=== PATIENT | female | born 1945 | race Caucasian/White ===

== ENCOUNTER 2018-08-19 17:27 | Emergency (ER) | payer MEDICARE, SELFPAY ==
[2018-08-19 17:29] VITALS: BP 178/63; PULSE 73; RESP 16; TEMP 36.8; O2SAT 97
--- NOTE | 2018-08-19 17:40 | W.ED.GENAD ---
Discharge Plan Disposition Patient Disposition: HOME Condition: Fair Discharge Details Chief Complaint: Orthopedic Clinical Impression: Knee strain Primary Care Provider: Mary Kaur ED Provider: Altagracia Clay Discharge Instructions Instructions: Swollen Knee Joint (ED) Additional Instructions: Encourage rest, ice, elevation. Tylenol and/or Motrin as needed for discomfort. Continue with brace until being reevaluated. Please avoid activities that cause increased pain/strain to knee. Keep upcoming appointment with primary care for reevaluation. I am concerned that you have a meniscus injury, you may discuss this further with them. at your visit next week. If you develop fevers/chills, increased pain or other new/worsening symptoms please seek care urgently once again. Referrals: Mary Kaur MD [Primary Care Provider] - Medical Decision Making Patient is a 73-year-old female, accompanied by friend, with chief complaint of right knee pain. She reports a prior to arrival she was cleaning out her pool. Was bent down kneeling on the contralateral side when she went to go pushed up to bring herself to an upright position again, placing the entirety of her weight on the right knee, she felt a sudden pop. Since that time, patient has had pain on the lateral aspect of the knee. No previous surgeries or injuries to this knee. On exam, she is ambulating with an antalgic gait. She has pain along the lateral joint line seems to be quite focal. No effusion. Limited flexion. Full extension. Ligamentously intact. Am concerned for possible meniscal injury as the pain is greatly exacerbated with flexion, again localized to the lateral aspect of the knee. Given the mechanism of injury, do not suspect a fracture. Encourage rest, ice, elevation. Tylenol and ibuprofen as needed for discomfort. We did discuss the expected course if this is a meniscal injury. Patient was placed in a hinged knee brace. Patient would like to follow-up with her primary care, has an appointment with them next week. We discussed new/worsening symptoms that should prompt urgent evaluation once again. All the questions and concerns were addressed and she is in agreement this plan. HPI General Mode of arrival: ambulatory. Date/Time Provider Initiated Documentation: 08/19/18 17:29. Limitations to Documentation: no limitations. Information obtained by: patient, family (accompanied by friend) and RN notes reviewed. History of Present Illness 73 year old F presents to the emergency department with the chief complaint of right knee pain, described as moderate, with intensity rated at 8. Quality is described as aching, and is localized to the right and lower extremity. Patient reports no radiation. Patient started experiencing this minute(s) and it has been constant. Immobilization improves symptom(s), Movement worsens symptoms . Patient notes no other symptoms.. Patient did receive the following treatments prior to arrival, none Related Data Allergies Allergy/AdvReac Type Severity Reaction Status Date / Time No Known Allergies Allergy Unverified 08/19/18 17:38 General Stated Complaint: Orthopedic MEAGHAN: 4 Review of Systems Constitutional Reports as per HPI, Denies chills, Denies fever(s), Denies headache(s) and Denies weakness ENT Denies headache(s) Cardiovascular Reports as per HPI Respiratory Reports as per HPI and Denies cough Musculoskeletal Reports as per HPI and Denies tingling Integumentary/Breasts Reports as per HPI, Denies rash and Denies wounds Neurologic Reports as per HPI, Denies headache(s), Denies tingling, Denies paresthesias and Denies weakness [facility] Medical History Depression Diabetes Obesity (BMI 30-39.9) Family History Other Personal history of malignant neoplasm Social History Smoking/Tobacco Use Status: Never Alcohol Intake: never Drug use: Never Substance use type: does not use Do you feel safe at home: Yes Do you feel safe in your relationship?: Yes Exam Const General: cooperative, healthy appearing, comfortable, no acute distress, well developed and well groomed Nutritional Appearance: average body habitus and well nourished Orientation: alert and awake Resp Effort & Inspection: normal respiratory effort, able to speak in complete sentences and no respiratory distress Cardio Rate: regular rate Rhythm: regular rhythm Skin General skin exam: no rashes or lesions noted Lesions: no lesions Rashes: no rashes Trauma: no lacerations or abrasions Neuro General: alert and awake Cognition: normal cognition Speech: speech normal Gait: normal gait Motor: muscle tone normal throughout Sensory Exam: no sensory deficits noted Extrem Right lower extremity: normal capillary refill, no joint enlargement, hip/thigh Details: normal to inspection, knee Details: tenderness Location: of the lateral joint line, knee ligament exam normal Details: anterior drawer test normal, posterior drawer test normal, valgus stress test normal and varus stress test normal; no pain with axial loading and Bernardo's Test (unable to complete secondary to pain); no swelling, ROM abnormal, no lacerations, no ecchymosis, no crepitus and no deformity, lower leg Details: normal to inspection and no edema; no tenderness and no palpable cords, ankle Details: normal to inspection and foot Details: normal capillary refill; ROM limited (full extension of knee, limited flexion to 90) and no edema Psych Appearance: grossly normal and well kempt Mental Status: mental status grossly normal Speech and Movement: speech and movement normal Course Vital Signs Temperature 36.8 C 08/19/18 17:29 Pulse 73 08/19/18 17:29 Respiratory Rate 16 08/19/18 17:29 Blood Pressure 178/63 H 08/19/18 17:29 Pulse Oximetry 97 08/19/18 17:29 Temperature 36.8 C 08/19/18 17:29 Temperature Source Skin 08/19/18 17:29 Pulse 73 08/19/18 17:29 Respiratory Rate 16 08/19/18 17:29 Respiratory Effort 08/19/18 17:38 Blood Pressure 178/63 H 08/19/18 17:29 Blood Pressure Position Sitting 08/19/18 17:29 Pulse Oximetry 97 08/19/18 17:29 Oxygen Delivery Method Room Air 08/19/18 17:29 Oxygen Flow Rate 0 08/19/18 17:29 Pain Level 8 08/19/18 17:29
[2018-08-19 17:59] VITALS: BP 160/71
--- NOTE | 2018-08-19 18:08 | ED.GENADUL_ITS ---
Discharge Plan Disposition Patient Disposition: HOME Condition: Fair Discharge Details Chief Complaint: Orthopedic Clinical Impression: Knee strain Primary Care Provider: Mary Kaur ED Provider: Altagracia Clay Discharge Instructions Instructions: Swollen Knee Joint (ED) Additional Instructions: Encourage rest, ice, elevation. Tylenol and/or Motrin as needed for discomfort. Continue with brace until being reevaluated. Please avoid activities that cause increased pain/strain to knee. Keep upcoming appointment with primary care for reevaluation. I am concerned that you have a meniscus injury, you may discuss this further with them. at your visit next week. If you develop fevers/chills, increased pain or other new/worsening symptoms please seek care urgently once again. Referrals: Mary Kaur MD [Primary Care Provider] - Medical Decision Making Patient is a 73-year-old female, accompanied by friend, with chief complaint of right knee pain. She reports a prior to arrival she was cleaning out her pool. Was bent down kneeling on the contralateral side when she went to go pushed up to bring herself to an upright position again, placing the entirety of her weight on the right knee, she felt a sudden pop. Since that time, patient has had pain on the lateral aspect of the knee. No previous surgeries or injuries to this knee. On exam, she is ambulating with an antalgic gait. She has pain along the lateral joint line seems to be quite focal. No effusion. Limited flexion. Full extension. Ligamentously intact. Am concerned for possible meniscal injury as the pain is greatly exacerbated with flexion, again localized to the lateral aspect of the knee. Given the mechanism of injury, do not suspect a fracture. Encourage rest, ice, elevation. Tylenol and ibuprofen as n eeded for discomfort. We did discuss the expected course if this is a meniscal injury. Patient was placed in a hinged knee brace. Patient would like to follow-up with her primary care, has an appointment with them next week. We discussed new/worsening symptoms that should prompt urgent evaluation once again. All the questions and concerns were addressed and she is in agreement this plan. HPI General Mode of arrival: ambulatory . Date/Time Provider Initiated Documentation: 08/19/18 17:29 . Limitations to Documentation: no limitations . Information obtained by: patient, family (accompanied by friend) and RN notes reviewed . History of Present Illness 73 year old F presents to the emergency department with the chief complaint of right knee pain, described as moderate, with intensity rated at 8. Quality is described as aching, and is localized to the right and lower extremity. Patient reports no radiation. Patient started experiencing this minute(s) and it has been constant. Immobilization improves symptom(s), Movement worsens symptoms . Patient notes no other symptoms.. Patient did receive the following treatments prior to arrival, none Related Data Allergies Allergy/AdvReac Type Severity Reaction Status Date / Time No Known Allergies Allergy Unverified 08/19/18 17:38 General Stated Complaint: Orthopedic MEAGHAN: 4 Review of Systems Constitutional Reports as per HPI, Denies chills, Denies fever(s), Denies headache(s) and Denies weakness ENT Denies headache(s) Cardiovascular Reports as per HPI Respiratory Reports as per HPI and Denies cough Musculoskeletal Reports as per HPI and Denies tingling Integumentary/Breasts Reports as per HPI, Denies rash and Denies wounds Neurologic Reports as per HPI, Denies headache(s), Denies tingling, Denies paresthesias and Denies weakness [facility] Medical History Depression Diabetes Obesity (BMI 30-39.9) Family History Other Personal history of malignant neoplasm Social History Smoking/Tobacco Use Status: Never Alcohol Intake: never Drug use: Never Substance use type: does not use Do you feel safe at home: Yes Do you feel safe in your relationship?: Yes Exam Const General: cooperative, healthy appearing, comfortable, no acute distress, well developed and well groomed Nutritional Appearance: average body habitus and well nourished Orientation: alert and awake Resp Effort & Inspection: normal respiratory effort, able to speak in complete sentences and no respiratory distress Cardio Rate: regular rate Rhythm: regular rhythm Skin General skin exam: no rashes or lesions noted Lesions: no lesions Rashes: no rashes Trauma: no lacerations or abrasions Neuro General: alert and awake Cognition: normal cognition Speech: speech normal Gait: normal gait Motor: muscle tone normal throughout Sensory Exam: no sensory deficits noted Extrem Right lower extremity: normal capillary refill, no joint enlargement, hip/thigh Details: normal to inspection, knee Details: tenderness Location: of the lateral joint line, knee ligament exam normal Details: anterior drawer test normal, posterior drawer test normal, valgus stress test normal and varus stress test normal; no pain with axial loading and Bernardo's Test (unable to complete secondary to pain); no swelling, ROM abnormal, no lacerations, no ecchymosis, no crepitus and no deformity, lower leg Details: normal to inspection and no edema; no tenderness and no palpable cords, ankle Details: normal to inspection and foot Details: normal capillary refill; ROM limited (full extension of knee, limited flexion to 90) and no edema Psych Appearance: grossly normal and well kempt Mental Status: mental status grossly normal Speech and Movement: speech and movement normal Course Vital Signs Temperature 36.8 C 08/19/18 17:29 Pulse 73 08/19/18 17:29 Respiratory Rate 16 08/19/18 17:29 Blood Pressure 178/63 H 08/19/18 17:29 Pulse Oximetry 97 08/19/18 17:29 Temperature 36.8 C 08/19/18 17:29 Temperature Source Skin 08/19/18 17:29 Pulse 73 08/19/18 17:29 Respiratory Rate 16 08/19/18 17:29 Respiratory Effort 08/19/18 17:38 Blood Pressure 178/63 H 08/19/18 17:29 Blood Pressure Position Sitting 08/19/18 17:29 Pulse Oximetry 97 08/19/18 17:29 Oxygen Delivery Method Room Air 08/19/18 17:29 Oxygen Flow Rate 0 08/19/18 17:29 Pain Level 8 08/19/18 17:29
== END 2018-08-19 18:04 | disposition home or self-care (01) ==
PROVIDERS: Emergency Provider Physician Assistant
DX: S86.911A Strain of unspecified muscle(s) and tendon(s) at lower leg level, right leg, initial encounter (principal); X50.9XXA Other and unspecified overexertion or strenuous movements or postures, initial encounter
CPT/HCPCS: 29505; 99283; 99282; L1810

== ENCOUNTER 2018-08-27 12:34 | Outpatient (REF) | payer MEDICARE, SELFPAY ==
[2018-08-27 13:21] LABS: Iron 111 ug/dL (50-175); Total Iron Binding Capacity 326 ug/dL (250-450); Transferrin Sat 34 % (15-50)
[2018-08-27 13:34] LABS: HCT 39.2 % (36.0-46.0); HGB 13.3 g/dL (12.0-15.5); Mean Corp. HGB Concentration 33.9 g/dL (32.0-36.0); Mean Corpuscular Volume 88.3 fL (80-95); Mean Platelet Volume 10.7 fL (8.0-11.0); Platelet Count 255 x1000/uL (130-400); RBC 4.44 m/cumm (4.00-5.20); RBC Distribution Width 12.9 % (11.7-14.6); White Blood Cell Count 5.99 k/cumm (4.4-10.8)
[2018-08-27 13:50] LABS: ALT 32 U/L (12-78); AST 23 U/L (15-37); BUN 15 mg/dL (7-18); CREATININE 0.75 mg/dL (0.55-1.02); Calcium 9.4 mg/dL (8.5-10.1); Calculated LDL 88; Chloride 102 mmol/L (98-107); Cholesterol 179 mg/dL (50-200); Glucose 92 mg/dL (70-100); HDL Cholesterol 43 mg/dL (40-60); Potassium 4.6 mmol/L (3.5-5.1); Sodium 139 mmol/L (136-145); Triglyceride 242 mg/dL (30-150); Vitamin B12 348 pg/mL (193-986)
[2018-08-27 14:01] LABS: Hemoglobin A1C 5.6 % (4.5-6.2)
[2018-08-30 07:55] LABS: Vitamin D 25 Total 23.2 ng/ml (30-100)
== END 2018-08-27 12:54 ==
LOC: NCHCN 12:34
PROVIDERS: PCP Nurse Practitioner Family; Visit Provider Nurse Practitioner Family
DX: E66.9 Obesity, unspecified (principal); I10 Essential (primary) hypertension; Z86.2 Personal history of diseases of the blood and blood-forming organs and certain disorders involving the immune mechanism; R73.09 Other abnormal glucose; F32.9 Major depressive disorder, single episode, unspecified
CPT/HCPCS: 80048; 80061; 82306; 83721; 85027; 82607; 83036; 83540; 83550; 84450; 84460

== ENCOUNTER 2019-04-22 12:09 | Outpatient (REF) | payer MEDICARE, SELFPAY ==
[2019-04-22 21:15] LABS: Anion Gap 9.4 mmol/L (3-11); BUN 16 mg/dL (7-18); CO2 28.6 mmol/L (21.0-32.0); CREATININE 0.91 mg/dL (0.55-1.02); Calcium 8.8 mg/dL (8.5-10.1); Chloride 103 mmol/L (98-107); Glucose 131 mg/dL (74-106); NT-proBNP 604 pg/mL (<300); Potassium 3.8 mmol/L (3.5-5.1); Sodium 141 mmol/L (136-145); TSH (W/Ref FT4) 2.66 uIU/mL (0.36-3.74)
== END 2019-04-22 12:29 ==
LOC: NCHCN 12:09
PROVIDERS: PCP Nurse Practitioner Family; Visit Provider Nurse Practitioner Family
DX: I10 Essential (primary) hypertension (principal); R07.89 Other chest pain; R60.0 Localized edema
CPT/HCPCS: 80048; 83880; 84443

== ENCOUNTER 2019-04-28 01:33 | Outpatient (CLI) | payer MEDICARE, SELFPAY ==
--- NOTE | 2019-04-28 08:55 | DI.RAD_ITS ---
EXAM: XR FOREARM LT CLINICAL HISTORY: LT ARM PAIN, M79.602. TECHNIQUE: 2D digital imaging was performed. COMPARISON: No exams were available for comparison FINDINGS: BONES: No acute fracture is present. No bony destructive lesion is seen. Visualized portion of elbow and wrist joints are unremarkable. SOFT TISSUE: Normal. IMPRESSION: Unremarkable radiographs of the left forearm.
== END 2019-04-28 01:53 ==
PROVIDERS: PCP Nurse Practitioner Family; Visit Provider Nurse Practitioner Family
DX: M79.602 Pain in left arm (principal)
CPT/HCPCS: 73090

== ENCOUNTER 2019-05-08 01:30 | Outpatient (CLI) | payer MEDICARE, SELFPAY ==
--- NOTE | 2019-05-08 08:29 | DI.US_ITS ---
APPROVED REPORT EXAM: Comprehensive 2D, Doppler, and color-flow Echocardiogram Patient Location: Out-Patient Aging Room Operator: Melania Puga RDCS (AE) Indications: HTN, Chest Pressure Conclusion Left Ventricle : The left ventricle is mildly dilated. Left ventricular systolic function is mildly d ecreased. There is normal LV segmental wall motion. There is normal left ventricular wall thickness. Diastolic function is indeterminate. LVEF is 45-49%. Right Ventricle : The right ventricle is normal size. The right ventricular systolic function is norm al. Atria : The left atrium size is normal. The right atrium size is normal. Aortic Valve : The aortic valve is not well visualized. Aortic valve is probably trileaflet. There is no aortic valvular stenosis. Trace aortic regurgitation. Mitral Valve : There is mitral annular calcification. No evidence of mitral valve stenosis. Mild to m oderate mitral regurgitation. Tricuspid Valve : Tricuspid valve is grossly normal in structure and function. Trace tricuspid regurg itation. Great Vessels : IVC is normal in size and collapses >50% with inspiration. There is no prior echocardiogram available for comparison. Wall motion Left Ventricle The left ventricle is mildly dilated. Left ventricular systolic function is mildly decreased. There i s normal left ventricular wall thickness. There is normal LV segmental wall motion. Diastolic functio n is indeterminate. LVEF is 45-49%. Right Ventricle The right ventricle is normal size. The right ventricular systolic function is normal. Atria The left atrium size is normal. The right atrium size is normal. Aortic Valve The aortic valve is not well visualized. Aortic valve is probably trileaflet. There is no aortic valv ular stenosis. Trace aortic regurgitation. Mitral Valve There is mitral annular calcification. No evidence of mitral valve stenosis. Mild to moderate mitral regurgitation. Tricuspid Valve Tricuspid valve is grossly normal in structure and function. There is no tricuspid valve stenosis. Tr lisandra tricuspid regurgitation. Pulmonic Valve Pulmonic valve is not well visualized. There is no pulmonic valvular stenosis. Great Vessels The aortic root is normal in size. The ascending aorta is normal in size. IVC is normal in size and c ollapses >50% with inspiration. Pericardium There is no pericardial effusion. 2D Dimensions IVSD d PLAX 0.87 cm F: 0.6-1.0 LV Vol A2C d MOD 147.5 mL LVPW d PLAX 0.85 cm F: 0.6 - 1.0 LV Vol A4C d MOD 146.0 mL LVID d PLAX 5.41 cm F: 3.8 - 5.2 LA vol/ BSA A2C s A-L 48.2 mL/m2 LVDs 4.05 cm F: 2.2 - 3.5 LA vol/ BSA A4C s A-L 36.0 mL/m2 Ao Root d 2.64 cm F: 2.7 - 3.3 LA Vol/ BSA Biplane s A-L 44.1 mL/m2 RA Area A4C 16.21 cm2 LA Area A4C s MOD 20.55 cm2 RA Vol/ BSA A4C s A-L 23.4 mL/m2 LA Area A2C s MOD 25.16 cm2 Ao Asc Diam d 2.58 cm F: 2.3 - 3.1 LV EF A4C MOD 46.5 % LV EF Teichholz 49.3 % LV EF A2C MOD 45.7 % LVEF (Arguelles's) 47.53 % F: 54 - 74 LV EF Biplane MOD 47.5 % LV Volume 112.36 mL F: 46 - 106 LV Volume Index 53.76 mL/m2 F: 29 - 61 LV Vol Biplane MOD 152.0 mL FS 25.15 % LV Diastology MV E' medial 0.061 (>0.07 m/s) E/A Ratio 1.0 LV E/e MED 14.85 (<14) MV E Vmax 0.91 (0.4-1.3 m/s) MV E' lateral 0.072 (>0.1 m/s) MV A Vmax 0.95 (0.4-1.3 m/s) LV E/e LAT 12.65 (<14) MV E/A Ratio 0.91 MV E/E' medial 14.88 MV E/E' lateral 12.68 Aortic Valve LVOT Area 2.41 cm2 AoV Area Vmax 1.36 cm2 LVOT Vmax 1.04 m/s AoV Area/ BSA (Vmax) 0.65 cm2/m2 LVOT Mean Ted. 0.68 m/s HUBERT Mean Ted. 1.33 cm2 LVOT Peak Grad 4.4 mmHg HUBERT Mean Ted. Index 0.64 cm2/m2 LVOT Mean Grad 2.2 mmHg AR DT 2444 msec LVOT VTI 0.249 m AR PHT 709 msec LVOT Diam s 1.70 cm (M/F) 1.5-2.5 AoV Vmax 1.84 (0.5-1.3 m/s) Velocity Ratio 0.56 AoV Mean Ted. 1.22 m/s AoV Peak Grad 13.5 mmHg LVOT SV 59.78 mL AoV Mean Grad 6.9 (<5 mmHg) AoV VTI 0.406 (0.18-0.25 m) AoV Area VTI 1.47 (2.5-4.5 cm2) AoV Area/ BSA (VTI) 0.70 cm/m2 Mitral Valve MV DT 178 (160-240 msec) MR Vmax 5.92 m/s MV PHT 52 msec MR VTI 2.248 m MV Area PHT 4.26 cm2 MR Peak Grad 140.4 mmHg MV VTI 0.370 m MR Mean Grad 81.9 mmHg MV Area VTI 1.62 (4.0-6.0 cm2) MR PISA Radius 0.66 cm MR EROA 0.16 cm2 MR Aliasing Velocity 0.35 m/s MR PISA 2.75 cm2 Pulmonary Valve PV Vmax 0.92 (0.5-1.5 m/s) PV Peak Grad 3.4 mmHg PV Mean Grad 2.0 mmHg PV VTI 0.224 m Tricuspid Valve TR Peak Grad 29.4 mmHg TR Vmax 2.71 m/s
== END 2019-05-08 01:50 ==
PROVIDERS: PCP Nurse Practitioner Family; Visit Provider Nurse Practitioner Family
DX: I10 Essential (primary) hypertension (principal); R07.89 Other chest pain; I08.3 Combined rheumatic disorders of mitral, aortic and tricuspid valves
CPT/HCPCS: 93306

== ENCOUNTER 2019-05-10 01:27 | Outpatient (CLI) | payer MEDICARE, SELFPAY ==
--- NOTE | 2019-05-10 09:15 | DI.NM_ITS ---
APPROVED REPORT Exam: Exercise Treadmill Patient Location: Out-Patient Room/Bed: Stress Nurse: Yovana Rocha RN BMI: 38.26 Baseline Rhythm: 1st degree heart block Indications: Patient reports chest ???tightness??? with activity since March. She denies any other associated symptoms. Medical History Medical History: Depression, Obesity. Cardiac Medications: Hyzaar, Diltiazem. Allergies: Lisinopril, Bactrim Cardiac Risk Factors: FHX of CAD, HTN Previous Cardiac Procedures: None Pretest Chest Pain Characteristics: No chest pain Exercise History: Physically active Physical Disabilities: None Lung Sounds: Clear to auscultation Heart Sounds: Regular Stress Test Details Test: Exercise stress testing was performed using a Ty protocol. Nuclear Acquisition: Stress Tc-99m/Stress Tc-99m 1 day Rest Isotope: Tc-99m Sestamibi. Dose: 12.0 Date: 05/10/2019 Injection Time: 1000 Stress Isotope: Tc-99m Sestamibi. Dose: 38.0 Date: 05/10/2019 Injection Time: 1128 HR Resting HR Supine: 61 bpm Max Heart Rate (APMHR): 148 bpm Resting HR Standin bpm Target HR (85% APMHR): 125 bpm Max HR Achieved: 133 bpm % of APMHR: 89 HR response to stress: Normal HR response to stress BP Resting BP Supine: 180/58 mmHg Resting BP Standin/62 mmHg Max BP: 208/78 mmHg BP response to stress: Normal blood pressure response to stress. Comment: Hypertensive at baseline. ECG Resting ECG: Sinus Rhythm Stress ECG: Sinus Tachycardia ST Change: Normal Arrhythmia: APC's Comment: Occasional PAC's noted. Recovery ECG: Sinus Rhythm Recovery ST Change: Normal Recovery Arrhythmia: None Clinical Reason for Termination: Dyspnea Stress Symptoms: Dyspnea Exercise duration: 5 min01 sec Highest Stage Reached: Stage 2: 2.5 mph at 12% grade. Exercise capacity: 7.05 METs Functional Capacity: Average Capacity Stress ECG Conclusion 1. Patient exercised for 5 minutes (7 METS). Rate-pressure product was 24,000. 2. There was no evidence of ischemia on the EKG portion of this exam Protocol Used: Ty Protocol Stress Test Summary STAGE Time (mins) Speed (mph) Grade (%) HR BP SYMPTOMS METS Supine 61 180/58 Standing 71 178/62 1 3 1.7 10 118 194/82 4.6 2 6 2.5 12 7 3 9 3.4 14 10.2 4 12 4.2 16 12.9 5 15 5.0 18 17.2 1 min recovery 106 208/78 3 min recovery 92 200/70 6 min recovery 87 180/80 9 min recovery 91 180/78 MPI Conclusion With stress the patient's ejection fraction was 47%. There were no wall motion abnormalities. There was no evidence of ischemia on the imaging portion of this exam. This represents a normal SPECT stress test. Radiologist Interpretation Radiologist agrees with Jacker's Interpretation. Radiologist Interpretation by: Jamie Espana MD Interpretation Date/Time: 05/10/2019 12:45:30
== END 2019-05-10 01:47 ==
PROVIDERS: PCP Nurse Practitioner Family; Visit Provider Nurse Practitioner Family
DX: R94.31 Abnormal electrocardiogram [ECG] [EKG] (principal); R07.89 Other chest pain; I44.0 Atrioventricular block, first degree; I10 Essential (primary) hypertension
CPT/HCPCS: 78452; 93016; 93018; 93017

== ENCOUNTER 2019-05-12 07:47 | Outpatient (CLI) | payer MEDICARE, SELFPAY ==
--- NOTE | 2019-05-12 | DI.RAD_ITS ---
EXAM: XR CHEST 2V PA LATERAL INDICATION: COUGH, RO5. COMPARISON: No exams were available for comparison TECHNIQUE: 2D digital imaging was performed. FINDINGS: The heart appears mildly enlarged. There are mild fibrotic changes. No superimposed infiltrate, eff usion or pulmonary edema is seen. There degenerative changes in the spine. No compression fractures are seen. IMPRESSION: No acute abnormality. DATA REPOSITORY: RADIATION DOSE DELIVERED:
== END 2019-05-12 08:07 ==
PROVIDERS: PCP Nurse Practitioner Family; Visit Provider Nurse Practitioner Family
DX: R05 Cough (principal); I51.7 Cardiomegaly
CPT/HCPCS: 71046

== ENCOUNTER → 2019-06-23 13:49 | Outpatient (BNVA) | payer MEDICARE, SELFPAY | PROVIDERS: PCP Nurse Practitioner Family; Referring Provider Nurse Practitioner Family; Visit Provider Internal Medicine Cardiovascular Disease | DX: R07.89 Other chest pain (principal); I10 Essential (primary) hypertension; E11.9 Type 2 diabetes mellitus without complications | CPT/HCPCS: 99204; 99443 ==

== ENCOUNTER 2019-07-12 13:08 | Outpatient (REF) | payer MEDICARE, SELFPAY ==
[2019-07-12 20:58] LABS: Anion Gap 7.5 mmol/L (3-11); BUN 18 mg/dL (7-18); CO2 28.5 mmol/L (21.0-32.0); CREATININE 0.96 mg/dL (0.55-1.02); Calcium 9.4 mg/dL (8.5-10.1); Chloride 103 mmol/L (98-107); Estimated GFR 57.13 (mL/min/1.73m2); Glucose 170 mg/dL (74-106); Potassium 4.7 mmol/L (3.5-5.1); Sodium 139 mmol/L (136-145)
== END 2019-07-12 13:28 ==
LOC: NCHCN 13:08
PROVIDERS: PCP Nurse Practitioner Family; Visit Provider Nurse Practitioner Family
DX: I10 Essential (primary) hypertension (principal)
CPT/HCPCS: 80048

== ENCOUNTER 2019-08-09 09:03 | Outpatient (REF) | payer MEDICARE, SELFPAY ==
[2019-08-09 21:06] LABS: Anion Gap 8.2 mmol/L (3-11); BUN 23 mg/dL (7-18); CO2 26.8 mmol/L (21.0-32.0); CREATININE 0.99 mg/dL (0.55-1.02); Calcium 9.3 mg/dL (8.5-10.1); Chloride 102 mmol/L (98-107); Estimated GFR 55.14 (mL/min/1.73m2); Glucose 118 mg/dL (74-106); Potassium 4.2 mmol/L (3.5-5.1); Sodium 137 mmol/L (136-145)
== END 2019-08-09 09:23 ==
LOC: NCHCN 09:03
PROVIDERS: PCP Nurse Practitioner Family; Visit Provider Nurse Practitioner Family
DX: I10 Essential (primary) hypertension (principal); R73.03 Prediabetes; I34.0 Nonrheumatic mitral (valve) insufficiency
CPT/HCPCS: 80048

== ENCOUNTER 2020-02-17 20:36 | Outpatient (REF) | payer MEDICARE, SELFPAY ==
[2020-02-17 20:51] LABS: HCT 37.8 % (36.0-46.0); HGB 12.2 g/dL (11.2-15.7); MCHC 32.3 % (32.0-36.0); MPV 10.3 fL (8.0-11.0); Platelet Count 306 10^3/uL (130-400); RDW 12.7 % (11.7-14.6); RDW-SD 41.4 fL; WBC 7.28 10^3/uL (4.4-10.8)
[2020-02-17 21:23] LABS: Calculated LDL 95 mg/dL (<100); Cholesterol 170 mg/dL (<200); HDL Cholesterol 42 mg/dL (40-60); Triglyceride 167 mg/dL (<150)
[2020-02-17 21:39] LABS: Hemoglobin A1C 6.1 % (<5.7)
== END 2020-02-17 20:56 ==
LOC: NCHCN 20:36
PROVIDERS: PCP Nurse Practitioner Family; Visit Provider Nurse Practitioner Family
DX: Z00.00 Encounter for general adult medical examination without abnormal findings (principal); I10 Essential (primary) hypertension; R73.03 Prediabetes
CPT/HCPCS: 80061; 85027; 83036

== ENCOUNTER → 2020-03-19 01:03 | Outpatient (CLI) | payer MEDICARE, SELFPAY ==
--- NOTE | 2020-03-19 | DI.US_ITS ---
EXAM: US CAROTID CLINICAL HISTORY: BILAT CAROTID BRUIT,R09.89. TECHNIQUE: Ultrasound carotids performed using grayscale, color-flow, and spectral Doppler imaging. COMPARISON: US US ECHOCARDIOGRAM from 05/08/2019 FINDINGS: RIGHT CAROTID ARTERY: Plaque: Minimal. Velocity elevation: None. LEFT CAROTID ARTERY: Plaque: There is mild plaque evident the level of the left carotid bulb. Velocity elevation: None. VERTEBRAL ARTERIES: Antegrade flow. Measurements: R Bulb: 75.8cm/s PS / 13.5cm/s ED R CCA: 76.5cm/s PS / 12.2cm/s ED R ECA: 111.8cm/s PS / 10.9cm/s ED R ICA Prox: 95.1cm/s PS /13.5cm/s ED R ICA Mid: 64.3cm/s PS / 20.6cm/s ED R ICA Distal: 84.8cm/s PS /15.4cm/s ED R Vert: 73.3cm/s PS / 10.3cm/s ED R SVR: 1.24 R DVR: 1.11 L Bulb: 91.3cm/s PS /18cm/s ED L CCA: 75.8cm/s PS / 12.9cm/s ED L ECA: 111.6cm/s PS /13.2cm/s ED L ICA Prox:77.5cm/s PS / 17.4cm/s ED L ICA Mid: 87.9cm/sPS / 20.2cm/s ED L ICA Distal: 83.9cm/s PS / 23.7cm/s ED L Vert: 49.2cm/s PS / 12.1cm/s ED L SVR: 1.16 L DVR: 1.57 IMPRESSION: No evidence for hemodynamically significant carotid stenosis. There is mild plaque noted at the leve l of left carotid bulb. No significantly elevated velocities. Stenosis is less than 50 percent at t his level. Antegrade flow is demonstrated in both vertebral arteries. Criteria for Carotid Stenosis: Normal: ICA PSV <125 cm/s no plaque or intimal thickening is visible. <50% stenosis: ICA PSV <125 cm/s and plaque or intimal thickening is visible. 50-69% stenosis: ICA PSV is 125-250 cm/s and plaque is visible. >70% stenosis to near occlusion: ICA PSV >250 cm/s with visible plaque and luminal narrowing. DATA REPOSITORY:
== END ==
PROVIDERS: PCP Nurse Practitioner Family; Visit Provider Nurse Practitioner Family
DX: R09.89 Other specified symptoms and signs involving the circulatory and respiratory systems (principal)
CPT/HCPCS: 93880

== ENCOUNTER 2021-01-31 16:47 | Outpatient (REF) | payer MEDICARE, SELFPAY ==
[2021-01-31 17:05] LABS: Hemoglobin A1C 6.6 % (<5.7)
[2021-01-31 17:14] LABS: Anion Gap 10.9 mmol/L (3-11); BUN 19 mg/dL (7-18); CO2 26.1 mmol/L (21.0-32.0); CREATININE 0.9 mg/dL (0.55-1.02); Calcium 9.6 mg/dL (8.5-10.1); Chloride 106 mmol/L (98-107); Glucose 133 mg/dL (74-106); Potassium 4.3 mmol/L (3.5-5.1); Sodium 143 mmol/L (136-145)
== END 2021-01-31 16:48 | disposition home or self-care (01) ==
LOC: NCHCN 16:47
PROVIDERS: PCP Nurse Practitioner Family; Visit Provider Nurse Practitioner Family
DX: R73.03 Prediabetes (principal); I10 Essential (primary) hypertension
CPT/HCPCS: 80048; 83036

== ENCOUNTER 2021-11-25 15:24 | Outpatient (REF) | payer MEDICARE, SELFPAY ==
[2021-11-25 20:18] LABS: Anion Gap 10.7 mmol/L (3-11); CO2 26.3 mmol/L (21.0-32.0); CREATININE 1.4 mg/dL (0.55-1.02); Calcium 9.1 mg/dL (8.5-10.1); Chloride 101 mmol/L (98-107); Estimated GFR 39.23 (mL/min/1.73m2); Glucose 124 mg/dL (74-106); Sodium 138 mmol/L (136-145)
[2021-11-25 20:27] LABS: BUN 28 mg/dL (7-18)
== END 2021-11-25 15:25 | disposition home or self-care (01) ==
LOC: NCHCN 15:24
PROVIDERS: PCP Nurse Practitioner Family; Visit Provider Nurse Practitioner Family
DX: I10 Essential (primary) hypertension (principal); Z01.812 Encounter for preprocedural laboratory examination
CPT/HCPCS: 80048

== ENCOUNTER 2021-12-24 16:35 | Outpatient (REF) | payer MEDICARE, SELFPAY ==
[2021-12-24 19:14] LABS: HCT 35.3 % (36.0-46.0); HGB 11.6 g/dL (11.2-15.7); MCH 28.2 pg (27.0-33.0); MCHC 32.9 % (32.0-36.0); MCV 86 fL (80-95); MPV 10.3 fL (8.0-11.0); Platelet Count 327 10^3/uL (130-400); RBC 4.11 10^6/uL (3.93-5.22); RDW 13.6 % (11.7-14.6); RDW-SD 42.8 fL; WBC 7.19 10^3/uL (4.4-10.8)
[2021-12-24 19:38] LABS: ALT 26 U/L (14-59); AST 18 U/L (15-37); Albumin 3.9 g/dL (3.4-5.0); Alkaline Phosphatase 83 U/L (46-116); Anion Gap 8.5 mmol/L (3-11); BUN 27 mg/dL (7-18); Bilirubin, Total 0.2 mg/dL (0.2-1.0); CO2 28.5 mmol/L (21.0-32.0); CREATININE 1.3 mg/dL (0.55-1.02); Calcium 9.5 mg/dL (8.5-10.1); Chloride 102 mmol/L (98-107); Estimated GFR 42.88 (mL/min/1.73m2); Glucose 110 mg/dL (74-106); Potassium 4.3 mmol/L (3.5-5.1); Sodium 139 mmol/L (136-145); Total Protein 7.7 g/dL (6.4-8.2)
[2021-12-24 20:04] LABS: Hemoglobin A1C 6.4 % (<5.7)
== END 2021-12-24 16:36 | disposition home or self-care (01) ==
LOC: NCHCN 16:35
PROVIDERS: PCP Nurse Practitioner Family; Visit Provider Nurse Practitioner Family
DX: E66.9 Obesity, unspecified (principal); I10 Essential (primary) hypertension
CPT/HCPCS: 80053; 85027; 83036

== ENCOUNTER 2022-08-01 15:32 | Outpatient (CLI) | payer MEDICARE, SELFPAY ==
--- NOTE | 2022-08-01 15:48 | DI.RAD_ITS ---
Exam(s) XR FOOT LT COMPLETE EXAM: XR FOOT LT COMPLETE CLINICAL HISTORY: PAIN LT TOE M79.675 CUTTING BOARD DROPPED ON FOOT. TECHNIQUE: 2D digital imaging was performed of the left foot. Three images were obtained. AP, obli que and lateral views were obtained. COMPARISON: No exams were available for comparison FINDINGS: BONES: No acute fracture is present. No bony destructive lesion is seen. JOINTS: No dislocation present. There are degenerative changes of the foot. SOFT TISSUE: There is soft tissue swelling of the foot. IMPRESSION: No acute fracture or dislocation. DATA REPOSITORY: RADIATION DOSE DELIVERED:
== END 2022-08-01 15:52 ==
LOC: DI 15:32
PROVIDERS: PCP Nurse Practitioner Family; Visit Provider Physician Assistant Medical
DX: M79.675 Pain in left toe(s) (principal)
CPT/HCPCS: 73630

== ENCOUNTER 2023-03-25 15:57 | Outpatient (REF) | payer MEDICARE, SELFPAY ==
[2023-03-25 21:42] LABS: HGB 12.3 g/dL (11.2-15.7); MCH 28.7 pg (27.0-33.0); MCHC 33.2 % (32.0-36.0); MCV 86 fL (80-95); MPV 10.7 fL (8.0-11.0); Platelet Count 371 10^3/uL (130-400); RBC 4.29 10^6/uL (3.93-5.22); RDW-SD 40.4 fL
[2023-03-25 22:07] LABS: Hemoglobin A1C 6.9 % (<5.7)
[2023-03-25 22:22] LABS: Iron 43 ug/dL (50-170); Total Iron Binding Capacity 395 ug/dL (250-450); Transferrin Sat 11 % (15-50)
[2023-03-25 22:47] LABS: ALT 28 U/L (14-59); AST 21 U/L (15-37); Albumin 3.9 g/dL (3.4-5.0); Alkaline Phosphatase 92 U/L (46-116); Anion Gap 7.2 mmol/L (3-11); BUN 19 mg/dL (7-18); Bilirubin, Total 0.2 mg/dL (0.2-1.0); CO2 29.8 mmol/L (21.0-32.0); CREATININE 1.1 mg/dL (0.55-1.02); Calcium 9.6 mg/dL (8.5-10.1); Chloride 102 mmol/L (98-107); Estimated GFR 52.08 (mL/min/1.73m2); Ferritin 47 ng/mL (8-252); Glucose 175 mg/dL (74-106); Potassium 4.4 mmol/L (3.5-5.1); Sodium 139 mmol/L (136-145); Total Protein 7.7 g/dL (6.4-8.2); Vitamin B12 350 pg/mL (193-986)
== END 2023-03-25 15:58 | disposition home or self-care (01) ==
LOC: NCHCN 15:57
PROVIDERS: PCP Nurse Practitioner Family; Visit Provider Nurse Practitioner Family
DX: D64.9 Anemia, unspecified (principal); R73.03 Prediabetes; I10 Essential (primary) hypertension
CPT/HCPCS: 80053; 85027; 82607; 82728; 83036; 83540; 83550

== ENCOUNTER → 2023-09-02 11:54 | Outpatient (CLI) | payer MEDICARE, SELFPAY ==
--- NOTE | 2023-09-02 | DI.RAD_ITS ---
Exam(s) XR CHEST 2V PA LATERAL EXAM: XR CHEST 2V PA LATERAL CLINICAL HISTORY: R05.9 cough unspecified TECHNIQUE: 2D digital imaging was performed. Two views. COMPARISON: CR XR CHEST 2V PA LATERAL from 05/12/2019 FINDINGS: HEART: Normal size. Aorta: Not dilated. PULMONARY VASCULATURE: Normal. LUNGS: Clear. PLEURAL SPACE: No pleural effusion or pneumothorax. BONE:Degenerative changes in the spine and shoulders. Soft tissues: Unremarkable. IMPRESSION: No acute abnormality. DATA REPOSITORY: RADIATION DOSE DELIVERED:
--- OUTSIDE RECORDS SUMMARY | 2023-09-02 11:59 | XMS_ITS | Continuity of Care Document ---
Author Name Unknown Organization [facility] Address [address] [place] [address] Care Team Providers Care Pouncer Name Role Phone Funmilayo Rao Primary Care Physician [phone] Encounter [facility] Date(s): 05/13/23 - 05/13/23 [facility] [address] [place] [address] Discharge Disposition: Home Allergies, Adverse Reactions, Alerts Substance Reaction Severity Status lisinopril Unknown Active sulfamethizole Severe Active trimethoprim Unknown Active Assessment and Plan Future Appointments Immunizations Given and Recorded Vaccine Date Status Refusal Reason SARS-CoV-2 (COVID-19) mRNA-1273 vaccine 05/30/20 R ecorded SARS-CoV-2 (COVID-19) mRNA-1273 vaccine 05/02/20 R ecorded Medications benzonatate 100 mg oral capsule 100 mg = 1 cap, Oral, every 8 hr, PRN as needed for cough, # 30 cap, 0 Refill(s) Start Date: 08/03/22 Status: Ordered citalopram 20 mg oral tablet 20 mg = 1 tab, Oral, Daily, # 30 tab, 0 Refill(s) Start Date: 08/03/22 Status: Ordered cyanocobalamin 500 mcg oral tablet 500 mcg = 1 tab, Oral, Daily, # 90 tab, 0 Refill(s) Start Date: 08/03/22 Status: Ordered dilTIAZem 120 mg/12 hours oral capsule, extended release 120 mg = 1 cap, Oral, every 12 hr, # 180 cap, 0 Refill(s) Start Date: 08/03/22 Status: Ordered Happy Tripp Vitamin D3 25 mcg (1000 intl units) oral capsule 0 Refill(s) Start Date: 08/03/22 Status: Ordered hydroCHLOROthiazide 25 mg oral tablet 25 mg = 1 tab, Oral, Daily, 0 Refill(s) Start Date: 08/03/22 Status: Ordered losartan 100 mg oral tablet 100 mg = 1 tab, Oral, Daily, # 30 tab, 0 Refill(s) Start Date: 08/03/22 Status: Ordered spironolactone 25 mg oral tablet 25 mg = 1 tab, Oral, Daily, # 30 tab, 0 Refill(s) Start Date: 08/03/22 Status: Ordered zolpidem 5 mg oral tablet See Instructions, take 1-2 PO night of sleep study if needed, # 2 tab, 0 Refill(s), Pharmacy: [facility] #[id number], 165.1, cm, 03/25/23 11:22:00 EST, Height, 104.33, kg, 03/25/23 11:23:00 EST, Weight Dosing Start Date: 03/25/23 Status: Ordered Problem List Condition Confirmation Course Effective Dates Status Health St atus Informant Anemia Confirmed Active Chest pressure Confirmed Active Depressed Confirmed Active Diabetes Confirmed Active Abnormal finding on EKG Confirmed Active HTN (hypertension) Confirmed Active Nonexudative age-related macular degeneration Confirmed Active Obesity Confirmed Active Obstructive sleep apnea, adult Confirmed Active Left arm pain Confirmed Active Snoring Confirmed Active Social History Social History Type Response Tobacco Never tobacco user T obacco Use:. Sex Female Patient Care team information Care Team Personnel Name: Jalen Funmilayoraven HANLEY Position: No Access Member Role: Primary Care Physician Address: Address: [address] [address]
--- OUTSIDE RECORDS SUMMARY | 2023-09-02 11:59 | XMS_ITS | Continuity of Care Document ---
Author Name Unknown Organization [facility] Address [address] [place] [address] Care Team Providers Care Accelerator Systems Director Name Role Phone Funmilayo Rao Primary Care Physician Encounter [facility] Date(s): 03/25/23 - 03/25/23 [facility] [address] [place] [address] Discharge Disposition: Home Allergies, Adverse Reactions, Alerts [...] Refill(s) Start Date: 08/03/22 Status: Ordered Happy Telferner Vitamin D3 25 mcg (1000 intl units) [...] needed, # 2 tab, 0 Refill(s), Pharmacy: [facility] #[facility], 165.1, cm, 03/25/23 11:22:00 EST, Height, 104.33, kg, 03/25/23 11:23:00 EST, Weight Dosing Start Date: 03/25/23 Status: Ordered Problem List Condition Confirmation Course Effective Dates Status Health St atus Informant Anemia Confirmed Active Chest pressure Confirmed Active Depressed Confirmed Active Diabetes Confirmed Active Abnormal finding on EKG Confirmed Active HTN (hypertension) Confirmed Active Nonexudative age-related macular degeneration Confirmed Active Obesity Confirmed Active Left arm pain Confirmed Active Snoring Confirmed Active Social History Social History Type Response Tobacco Never tobacco user T obacco Use:. Sex Female Patient Care team information Care Team Personnel Name: Funmilayo Rao Position: No Access Member Role: Primary Care Physician Address: Address: [address] [address]
== END ==
PROVIDERS: PCP Nurse Practitioner Family; Visit Provider Nurse Practitioner Family
DX: R05.9 Cough, unspecified (principal)
CPT/HCPCS: 71046

== ENCOUNTER 2023-10-29 07:20 | Emergency (ER) | payer MEDICARE, SELFPAY ==
[2023-10-29 07:26] VITALS: BP 154/58; PULSE 74; RESP 16; TEMP 36.9; O2SAT 98
--- NOTE | 2023-10-29 07:45 | DI.RAD_ITS ---
Exam(s) XR KNEE RT 4V AP,LAT,VILMA,PAT EXAM: XR KNEE RT 4V AP,LAT,VILMA,PAT CLINICAL HISTORY: TWISTED, PAIN ANTERIOR. TECHNIQUE: 2D digital imaging was performed of the right knee. Four views obtained. Merchant, AP, la teral and PA tunnel views were obtained. COMPARISON: CR XR CHEST 2V PA LATERAL from 09/02/2023 FINDINGS: BONES: No acute fracture is present. No bony destructive lesion is seen. There is an enthesophyte at the anterior patella. There is an area of sclerosis in the distal femoral metaphysis which may repre sent a bone infarct or enchondroma. JOINTS: The knee is normally aligned. There is a small joint effusion. SOFT TISSUE: Normal. IMPRESSION: No acute fracture or dislocation. Small joint effusion. DATA REPOSITORY: RADIATION DOSE DELIVERED:
--- NOTE | 2023-10-29 07:58 | ED.GENADUL_ITS ---
Discharge Plan Disposition Patient Disposition: Home Condition: Stable Discharge Details Clinical Impression: Effusion of knee joint right, Injury of knee, right Primary Care Provider: Funmilayo Rao ED Provider: Edgardo Love Home Meds and New Rx's Prescriptions: Continued hydrochlorothiazide 25 mg tablet 25 mg PO DAILY diltiazem HCl 120 mg capsule,extended release 12 hr 240 mg PO DAILY losartan 100 mg tablet 100 mg PO DAILY cholecalciferol (vitamin D3) 10 mcg (400 unit) capsule 20 mcg PO DAILY citalopram 20 mg tablet 20 mg PO DAILY spironolactone 25 mg tablet 50 mg PO DAILY benzonatate 100 mg capsule 100 mg PO ONCE PRN Patient Comments: pt reports taking very rare cyanocobalamin (vitamin B-12) [Vitamin B-12] 500 mcg lozenge 750 mcg PO DAILY amlodipine 5 mg tablet 5 mg PO DAILY ferrous sulfate [FeroSul] 325 mg (65 mg iron) tablet 325 mg PO DAILY Patient Comments: TAKE ONE TABLET BY MOUTH EVERY OTHER DAY Discharge Instructions Instructions: Knee Immobilizer (DC) Additional Instructions: Please take ibuprofen over the counter. Take 600mg by mouth every 6 hours as needed for pain. Please use knee immobilizer and crutches when ambulating. You may remove knee immobilizer when at rest. Please follow-up with orthopedics. Call to schedule an appointment. Please contact your primary care physician to arrange follow-up. Return to the ER immediately for any worsening or new concerning symptoms. Referrals: [facility] [Provider Group] Funmilayo Rao [Primary Care Provider] - [facility] General Mode of arrival: ambulatory . Date/Time Provider Initiated Documentation: 10/29/23 07:39 . Limitations to Documentation: no limitations . Information obtained by: patient . HPI Narrative: 78-year-old female presents with chief complaint of right knee pain. Patient notes few weeks ago she stepped off of a ladder and missed the last rung and injured her right knee. Right knee was sore over the past few weeks following that injury. Earlier this morning she was attempting to get out of bed and her leg was stuck in her blanket and she twisted it as she went to stood up and fell. She did not sustain direct impact to the knee. Pain is moderate to severe. Pain localized worse anteriorly. Pain worse with flexion. She notes no pain with weightbearing. She took 3 Advil at 3 AM this morning and pain has persisted. No associated numbness or tingling. No other injury. Related Data Home Medications ?Medication ?Instructions ?Recorded ?Confirmed cholecalciferol (vitamin D3) 10 20 mcg PO DAILY 06/21/19 10/29/23 mcg (400 unit) capsule citalopram 20 mg tablet 20 mg PO DAILY 06/21/19 10/29/23 diltiazem HCl 120 mg 240 mg PO DAILY 06/21/19 10/29/23 capsule,extended release 12 hr hydrochlorothiazide 25 mg tablet 25 mg PO DAILY 06/21/19 10/29/23 losartan 100 mg tablet 100 mg PO DAILY 06/21/19 10/29/23 benzonatate 100 mg capsule 100 mg PO ONCE PRN 06/23/19 10/29/23 cyanocobalamin (vitamin B-12) 500 750 mcg PO DAILY 06/23/19 10/29/23 mcg lozenges (Vitamin B-12) spironolactone 25 mg tablet 50 mg PO DAILY 06/23/19 10/29/23 amlodipine 5 mg tablet 5 mg PO DAILY 09/19/22 10/29/23 ferrous sulfate 325 mg (65 mg 325 mg PO DAILY 10/29/23 10/29/23 iron) tablet (FeroSul) Allergies Allergy/AdvReac Type Severity Reaction Status Date / Time lisinopril AdvReac Mild Unknown Unverified 10/29/23 07:30 sulfamethoxazole (From AdvReac Mild Unknown Unverified 10/29/23 07:30 Bactrim) trimethoprim (From Bactrim) AdvReac Mild Unknown Unverified 10/29/23 07:30 General Stated Complaint: Orthopedic MEAGHAN: 4 Review of Systems Musculoskeletal Musculoskeletal: Reports as per HPI Exam Const General: cooperative and no acute distress Cardio Rate: regular rate and not tachycardic Rhythm: regular rhythm Neuro General: patient alert, patient awake and tone normal Extrem Right lower extremity: hip/thigh Details: normal to inspection, knee Details: swelling (mild) and abnormal ROM Details: pain with active ROM during Details: in flexion, lower leg Details: normal to inspection, ankle Details: normal to inspection and foot Details: normal capillary refill and normal to inspection Other: able to elevate off bed and hold; neuro intact distally; 1+ PT Course Vital Signs Vital signs: Vital Signs Temperature 36.9 C 10/29/23 07:26 Pulse 74 10/29/23 07:26 Respiratory Rate 16 10/29/23 07:26 Blood Pressure 154/58 H 10/29/23 07:26 Pulse Oximetry 98 10/29/23 07:26 Temperature 36.9 C 10/29/23 07:26 Temperature Source Temporal Artery Scan 10/29/23 07:26 Pulse 74 10/29/23 07:26 Respiratory Rate 16 10/29/23 07:26 Respiratory Effort Normal 10/29/23 07:28 Blood Pressure 154/58 H 10/29/23 07:26 Blood Pressure Position Sitting 10/29/23 07:26 Pulse Oximetry 98 10/29/23 07:26 Oxygen Delivery Method Room Air 10/29/23 07:26 Oxygen Flow Rate 0 10/29/23 07:26 Pain Level 10 10/29/23 07:32 Medical Decision Making 800 -- 78-year-old female here with right knee injury. Initial injury occurred a few weeks ago and reinjured this morning with a twisting mechanism with fall while attempting to get out of bed. Patient with pain anteriorly over her patella that is worse with flexion. Patellar tendon complex intact. Considered patellar fracture versus knee sprain versus meniscal injury. Plan to obtain x- ray of the knee. Offered analgesic and patient declined. 918 --x-ray of the right knee was interpreted by radiology:No acute fracture or dislocation. Small joint effusion. Suspect meniscal injury versus sprain. Plan for knee immobilizer and crutches. Patient instructed to weight-bear as tolerated. Plan for follow-up with orthopedics. Quality:SDOH Health Related Social Needs: No Data to Display PFSH All Active Problems (Updated 10/29/23 @ 09:21 by Edgardo Love MD) Injury of knee, right (Acute) Effusion of knee joint right (Acute) Hypertension (Chronic) Nonexudative age-related macular degeneration, bilateral, early dry stage (Acute) Chest pressure (Acute) Arm pain, left (Acute) Abnormal finding on EKG (Acute) Medical History DNR (do not resuscitate) Nevus Mitral valve regurgitation Bilateral carotid bruits Suicidal thoughts Urge incontinence Snoring Pain in left toe(s) Seborrheic keratosis Back pain Anemia Obesity (BMI 30-39.9) Depression Diabetes Family History Other Personal history of malignant neoplasm Social History Smoking/Tobacco Use Status: Never Smoking risk assessment performed?: Yes Alcohol Intake: never Drug use: Never Substance use type: does not use What type of physical activity do you participate in: none Do you feel safe at home: Yes Do you feel safe in your relationship?: Yes
--- NOTE | 2023-10-29 09:29 | NUR.NOTE ---
Referral sent to orthopedics for a follow up due to a twisting injury and small effusion. Knee immobilizer given, crutches were ordered pt declined crutches. Weight bearing as tolerated. Follow up in one week. Nursing Note:
== END 2023-10-29 09:30 | disposition home or self-care (01) ==
PROVIDERS: Emergency Provider Student in an Organized Health Care Education/Training Program; PCP Nurse Practitioner Family
DX: M25.461 Effusion, right knee (principal); S89.91XA Unspecified injury of right lower leg, initial encounter; W11.XXXA Fall on and from ladder, initial encounter
CPT/HCPCS: 29505; 99283; 73564

== ENCOUNTER → 2023-11-13 09:12 | Outpatient (BNVA) | payer MEDICARE, SELFPAY | PROVIDERS: PCP Nurse Practitioner Family; Referring Provider Nurse Practitioner Family | DX: M17.11 Unilateral primary osteoarthritis, right knee (principal) | CPT/HCPCS: 99213 ==

== ENCOUNTER 2024-03-04 11:14 | Outpatient (CLI) | payer MEDICARE, SELFPAY ==
--- NOTE | 2024-03-04 11:22 | DI.RAD_ITS ---
Exam(s) XR HIP PELVIS ADULT BL EXAM: XR HIP PELVIS ADULT BL CLINICAL HISTORY: hip pain. TECHNIQUE: 2D digital imaging was performed of the pelvis and bilateral hips. Three images were obt ained. AP pelvis and lateral views of both hips were obtained. COMPARISON: No exams were available for comparison FINDINGS: BONES: No acute fracture is present. No bony destructive lesion is seen. JOINTS: No dislocation present. There is prominence of the left superior acetabulum. There does appe ar to be mild narrowing of the hips bilaterally. The hips are otherwise well maintained. The sacroi liac joints are unremarkable as is the symphysis pubis. SOFT TISSUE: Normal. IMPRESSION: Mild degenerative changes of the hips, left greater than right. DATA REPOSITORY: RADIATION DOSE DELIVERED:
== END 2024-03-04 11:15 | disposition home or self-care (01) ==
LOC: DIORS 11:14
PROVIDERS: PCP Nurse Practitioner Family; Referring Provider Nurse Practitioner Family
DX: M70.61 Trochanteric bursitis, right hip; M70.62 Trochanteric bursitis, left hip
CPT/HCPCS: 20610; 73521; J1010

== ENCOUNTER 2024-07-28 15:00 | Outpatient (CLI) | payer BC, MEDICARE, SELFPAY ==
--- NOTE | 2024-07-28 14:26 | DI.RAD_ITS ---
Exam(s) XR FOOT RT COMPLETE EXAM: XR FOOT RT COMPLETE CLINICAL HISTORY: RT FOOT PAIN, M79.671. TECHNIQUE: 2D digital imaging was performed. COMPARISON: CR XR FOOT LT COMPLETE from 08/01/2022 FINDINGS: 3 views No evidence of acute fracture nor diastasis of the Lisfranc joint. No pes planus. There is prominent calcification both linear and round on the plantar aspect of the hind foot consist ent with calcifications within the plantar fascia. These are adjacent to the moderate-large size inf erior calcaneal spur and there is also a moderate size enthesophyte evident on the posterior calcaneu s Achilles insertion site. There are mild degenerative changes in the tarsometatarsal joints. Mild hallux valgus noted. Mild d egenerative changes in the great toe metatarsophalangeal joint. No osseous lesions evident. IMPRESSION: No fractures. Multiple prominent calcifications in the region of the plantar fascia are noted. DATA REPOSITORY: RADIATION DOSE DELIVERED:
== END 2024-07-28 15:20 ==
PROVIDERS: PCP Nurse Practitioner Family; Visit Provider Nurse Practitioner Family
DX: M79.671 Pain in right foot (principal)
CPT/HCPCS: 73630

== ENCOUNTER 2024-07-29 15:00 | Outpatient (REF) | payer BC, MEDICARE, SELFPAY ==
[2024-08-01 17:01] LABS: HCT 39.7 % (36.0-46.0); HGB 13.2 g/dL (11.2-15.7); MCH 29.3 pg (27.0-33.0); MCHC 33.2 % (32.0-36.0); MCV 88 fL (80-95); MPV 10.7 fL (8.0-11.0); Platelet Count 316 10^3/uL (130-400); RDW 12.7 % (11.7-14.6); WBC 7.44 10^3/uL (4.4-10.8)
[2024-08-01 17:06] LABS: BUN 23 mg/dL (7-18); Calcium 9.9 mg/dL (8.5-10.1); Estimated GFR 58.02 (mL/min/1.73m2); Glucose 147 mg/dL (74-106)
[2024-08-01 17:07] LABS: Alkaline Phosphatase 89 U/L (46-116); Anion Gap 6.2 mmol/L (3-11); Bilirubin, Total 0.2 mg/dL (0.2-1.0); CO2 30.8 mmol/L (21.0-32.0); Calculated LDL 85 mg/dL (<100); Chloride 101 mmol/L (98-107); Cholesterol 192 mg/dL (<200); HDL Cholesterol 48 mg/dL (>or=50); Potassium 4.3 mmol/L (3.5-5.1); Sodium 138 mmol/L (136-145); Total Protein 7.9 g/dL (6.4-8.2); Triglyceride 296 mg/dL (<150)
[2024-08-01 17:08] LABS: ALT 31 U/L (14-59); AST 23 U/L (15-37); Ferritin 76 ng/mL (8-252)
[2024-08-01 17:09] LABS: Iron 78 ug/dL (50-170); Total Iron Binding Capacity 367 ug/dL (250-450); Transferrin Sat 21 % (15-50)
[2024-08-01 23:54] LABS: COMMENT (LAB VIEW ONLY) 102.42 mg/dL; Microalb ug/mg Crea 23.6 ug/mg Cr
== END 2024-07-29 15:01 | disposition home or self-care (01) ==
LOC: NCHCN 15:00
PROVIDERS: PCP Nurse Practitioner Family; Visit Provider Nurse Practitioner Family
DX: D64.9 Anemia, unspecified (principal); I10 Essential (primary) hypertension; E11.9 Type 2 diabetes mellitus without complications
CPT/HCPCS: 80053; 80061; 85027; 82043; 82570; 82728; 83540; 83550

== ENCOUNTER 2024-08-17 13:39 | Outpatient (REF) | payer BC, MEDICARE, SELFPAY ==
[2024-08-17 15:09] LABS: Uric Acid 6.2 mg/dL (2.6-6.0)
== END 2024-08-17 13:40 | disposition home or self-care (01) ==
LOC: NCHCN 13:39
PROVIDERS: PCP Nurse Practitioner Family; Visit Provider Nurse Practitioner Family
DX: M79.671 Pain in right foot (principal)
CPT/HCPCS: 84550

== ENCOUNTER 2024-10-05 01:43 | Outpatient (CLI) | payer BC, MEDICARE, SELFPAY ==
--- NOTE | 2024-10-05 09:54 | DI.RAD_ITS ---
Exam(s) XR HIP RT COMPLETE AP PELVIS EXAM: XR HIP RT COMPLETE AP PELVIS CLINICAL HISTORY: RT HIP PAIN, M25.551. TECHNIQUE: 2D digital imaging was performed of the right hip. Two images were obtained. AP pelvis and lateral right hip views were obtained. COMPARISON: CR XR HIP PELVIS ADULT BL from 03/04/2024 FINDINGS: BONES: No acute fracture is present. No bony destructive lesion is seen. JOINTS: No dislocation present. There are mild degenerative changes seen in the hips bilaterally. The sacroiliac joints and symphysis pubis are intact. There is a small bump at the junction of the head and neck of the right femur suggestive of femoral acetabular impingement. SOFT TISSUE: Normal. IMPRESSION: Degenerative changes seen in the hips bilaterally. DATA REPOSITORY: RADIATION DOSE DELIVERED:
== END 2024-10-05 02:03 ==
PROVIDERS: PCP Nurse Practitioner Family; Visit Provider Nurse Practitioner Family
DX: M16.0 Bilateral primary osteoarthritis of hip (principal)
CPT/HCPCS: 73502

== ENCOUNTER 2024-10-17 15:32 | Outpatient (CLI) | payer BC, MEDICARE, SELFPAY ==
--- NOTE | 2024-10-17 15:31 | DI.RAD_ITS ---
Exam(s) XR ANKLE RT COMPLETE EXAM: XR ANKLE RT COMPLETE CLINICAL HISTORY: eval R ankle pain/swelling. TECHNIQUE: 2D digital imaging was performed. COMPARISON: No exams were available for comparison FINDINGS: 3 views No evidence of acute fracture nor widening the ankle mortise. Talar dome appears unremarkable. Some swelling on both sides the ankle noted. Accessory ossicles noted subjacent to the medial malleolus. There is impressive nodular calcification in the plantar fascia subjacent to the calcaneus. There is a moderate size inferior calcaneal spur. There is also an enthesophyte on the posterior calcaneus Achilles insertion site. IMPRESSION: Multiple calcified densities are noted in the plantar fascia. Moderate size inferior calcaneal spur. There is a posterior calcaneus enthesophyte noted. DATA REPOSITORY: RADIATION DOSE DELIVERED:
== END 2024-10-17 15:33 | disposition home or self-care (01) ==
LOC: DIORS 15:33
PROVIDERS: PCP Nurse Practitioner Family; Visit Provider Student in an Organized Health Care Education/Training Program
DX: M25.471 Effusion, right ankle (principal)
CPT/HCPCS: 73610

== ENCOUNTER 2024-11-17 11:45 | Outpatient (CLI) | payer BC, MEDICARE, SELFPAY ==
--- NOTE | 2024-11-17 09:45 | DI.RAD_ITS ---
Exam(s) XR LUMBAR SPINE COMPLETE EXAM: XR LUMBAR SPINE COMPLETE CLINICAL HISTORY: eval low back pain, ?neurogenic claudication. TECHNIQUE: 2D digital imaging was performed. Five views. COMPARISON: No exams were available for comparison FINDINGS: BONES: No fracture or destructive lesion. Vertebral body heights are maintained. Prominent endplate osteophytes. Prominent facet degenerative changes at L 4 5 and L5-S1. DISKS: Intervertebral disc spaces are maintained. ALIGNMENT: Lumbar spinal alignment is within normal limits. SOFT TISSUE: Calcified uterine fibroid. Mild arterial calcification. IMPRESSION: Prominent endplate osteophytes. Prominent facet degenerative changes of the lower lumbar spine. DATA REPOSITORY: RADIATION DOSE DELIVERED:
== END 2024-11-17 11:46 | disposition home or self-care (01) ==
LOC: DIORS 11:45
PROVIDERS: PCP Nurse Practitioner Family; Visit Provider Student in an Organized Health Care Education/Training Program
DX: M48.061 Spinal stenosis, lumbar region without neurogenic claudication (principal)
CPT/HCPCS: 72110

== ENCOUNTER 2024-12-20 01:29 | Outpatient (CLI) | payer BC, MEDICARE, SELFPAY ==
--- NOTE | 2024-12-20 06:30 | DI.MRI_ITS ---
Exam(s) MR LUMBAR SPINE WO EXAM: MR LUMBAR SPINE WO CLINICAL HISTORY: PAIN,lumbar spinal stenosis,m48.061. TECHNIQUE: Multiplanar multisequence MRI of the Lumbar spine was performed. COMPARISON: CR XR LUMBAR SPINE COMPLETE from 11/17/2024 FINDINGS: Bones: The last intervertebral disc space is designated the L5/S1 level for the numbering purpose of this examination. There are endplate osteophytes at multiple levels of the lumbar spine. Alignment is satisfactory. There is mild degenerative endplate signal changes at L3-L4. There is a Schmorl's node in the superior endplate of L4. Cord: It is of normal size and signal intensity. T12-L1: No disc herniations or bulges are present. No central spinal canal or neural foraminal stenosis. L1-2: No disc herniations or bulges are present. No central spinal canal or neural foraminal stenosis.There are degenerative changes of the facets. L2-3: No disc herniations or bulges are present. No central spinal canal or neural foraminal stenosis.There are degenerative changes of the facets. L3-4: There is a mild diffuse disc bulge. Degenerative changes of the facets are seen. There is no significant central spinal canal stenosis. There is mild left neural foraminal narrowing. There is no significant right neural foraminal stenosis. L4-5: There is a mild diffuse disc bulge with extension into the right neural foramen. There are hypertrophic changes of the facets. No significant central spinal canal stenosis is seen. There is moderate right neural foraminal stenosis. There is minimal left neural foraminal stenosis. L5-S1: There is a mild diffuse disc bulge. There are degenerative changes of the facets at this level.No significant central spinal canal or neural foraminal stenosis is present. Soft tissues: The visualized SI joints and sacrum are well maintained. The paraspinal soft tissues are unremarkable. IMPRESSION: 1. Degenerative changes seen at L4-L5 causing moderate right and mild left neural foraminal stenosis. 2. Degenerative changes at L3-L4 causing mild left neural foraminal stenosis. 3. There is no significant central spinal canal stenosis. DATA REPOSITORY:
== END 2024-12-20 01:49 ==
LOC: DI 01:29
PROVIDERS: PCP Nurse Practitioner Family; Visit Provider Student in an Organized Health Care Education/Training Program
DX: M48.061 Spinal stenosis, lumbar region without neurogenic claudication (principal)
CPT/HCPCS: 72148

== ENCOUNTER → 2025-03-02 00:37 | Outpatient (CLI) | payer MEDICARE, BC, SELFPAY ==
--- NOTE | 2025-03-02 10:00 | DI.RAD_ITS ---
Exam(s) RF JOINT INJ. FLUORO GUID RAD EXAM: RF JOINT INJ. 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 The Patient has had persistent right hip pain. Noninvasive measures have been tried. To serve as both diagnostic and therapeutic, an injection under fluoroscopy was recommended. The risks of the procedure were discussed with their Orthopedic provider and the patient elected to proceed. TECHNIQUE: 2D and realtime digital imaging was performed. CONTRAST MATERIAL: Water soluble contrast was utilized. COMPARISON: No exams were available for comparison FINDINGS: The Patient was greeted in the fluoroscopy room. The correct side was identified and the consent was reviewed with the patient and was signed. The patient was properly positioned on the fluoroscopy table. The right hipwas then prepped and draped. The right hip injection starting point was identified by the bony landmarks and fluoroscopy. The skin and soft tissue in the tract of the injection was anesthetized with 0.25% Bupivacaine. A spinal needle was then inserted into the right hip joint at the level of the head and neck junction under fluoroscopic guidance. A small amount of Omnipaque solution was injected to confirm intraarticular placement. Once confirmed, the right hip was injected with 5cc of a solution containing 0.25% Bupivacaine and 40 mg of Depo-Medrol. A bandaid was placed on the injection site. The patient tolerated the procedure well and left the department in good condition. IMPRESSION: Successful right hip injection. RADIATION DOSE DELIVERED: Ka,r=25.3 mGy
--- NOTE | 2025-03-02 10:00 | DI.RAD_ITS ---
Exam(s) RF JOINT INJ. FLUORO GUID RAD EXAM: RF JOINT INJ. FLUORO GUID RAD CLINICAL HISTORY: L HIP PAIN,FLUORO GUIDED INJ,OA LT HIP,M16.12. The Patient has had persistent left hip pain. Noninvasive measures have been tried. To serve as both diagnostic and therapeutic, an injection under fluoroscopy was recommended. The risks of the procedure were discussed with their Orthopedic provider and the patient elected to proceed. TECHNIQUE: 2D and realtime digital imaging was performed. CONTRAST MATERIAL: Water soluble contrast was utilized. COMPARISON: No exams were available for comparison FINDINGS: The Patient was greeted in the fluoroscopy room. The correct side was identified and the consent was reviewed with the patient and was signed. The patient was properly positioned on the fluoroscopy table. The left hipwas then prepped and draped. The left hip injection starting point was identified by the bony landmarks and fluoroscopy. The skin and soft tissue in the tract of the injection was anesthetized with 0.25% Bupivacaine. A spinal needle was then inserted into the left hip joint at the level of the head and neck junction under fluoroscopic guidance. A small amount of Omnipaque solution was injected to confirm intraarticular placement. Once confirmed, the left hip was injected with 5cc of a solution containing 0.25% Bupivacaine and 40 mg of Depo-Medrol. A bandaid was placed on the injection site. The patient tolerated the procedure well and left the department in good condition. IMPRESSION: Successful left hip injection. RADIATION DOSE DELIVERED: Jaironr=25.3 mGy
[2025-03-02] MEDS: methylPREDNISolone ACETATE 40 MG/ML VIAL IJ ×2 (15:56→15:58)
[2025-03-02] MEDS: Omnipaque 300 MG/ML 10 ML BTL IJ ×3 (15:57→16:00)
[2025-03-02] MEDS: Bupivacaine 0.25% Pres-Free 10 ML VIAL IJ ×3 (15:59→16:01)
== END ==
LOC: DI 00:37
PROVIDERS: PCP Nurse Practitioner Family; Visit Provider Student in an Organized Health Care Education/Training Program
DX: M16.0 Bilateral primary osteoarthritis of hip (principal)
CPT/HCPCS: 20610; 77002; J0665; J1010

== ENCOUNTER 2025-03-03 15:00 | Outpatient (REF) | payer MEDICARE, BC, SELFPAY ==
[2025-03-03 15:38] LABS: Abs Immature Grans 0.05 10^3/uL (0.0-0.06); HCT 37.2 % (36.0-46.0); HGB 12.1 g/dL (11.2-15.7); Immature Grans % 0.5 %; MCH 28.0 pg (27.0-33.0); MCHC 32.5 % (32.0-36.0); MCV 86 fL (80-95); MPV 10.5 fL (8.0-11.0); Platelet Count 324 10^3/uL (130-400); RBC 4.32 10^6/uL (3.93-5.22); RDW 12.4 % (11.7-14.6); RDW-SD 39.3 fL; WBC 10.98 10^3/uL (4.4-10.8)
[2025-03-03 15:45] LABS: Iron 77 ug/dL (50-170); Total Iron Binding Capacity 365 ug/dL (250-425); Transferrin Sat 21 % (15-50)
[2025-03-03 16:11] LABS: Hemoglobin A1C 7.3 % (<5.7)
== END 2025-03-03 15:01 | disposition home or self-care (01) ==
LOC: NCHCN 15:00
PROVIDERS: PCP Nurse Practitioner Family; Visit Provider Nurse Practitioner Family
DX: E61.1 Iron deficiency (principal); E11.9 Type 2 diabetes mellitus without complications
CPT/HCPCS: 83036; 83540; 83550; 85025